=== PATIENT | male | born 1995 | race Caucasian/White ===

== ENCOUNTER 2016-07-21 12:52 | Emergency (ER) | payer OTHER ==
[2016-07-21 13:59] VITALS: BP 139/72
--- NOTE | 2016-07-21 14:14 | UC ---
Cardiac HPI - HPI Summary HPI Summary: right to mid chest pain x 2 days, no sob, no cough, no fever or chills, the pain is constant, - History of Current Complaint Chief Complaint: UCChestPain Stated Complaint: SORE THROAT,FEVER,CONGESTION Time Seen by Provider: 07/21/16 13:53 Hx Obtained From: Patient Onset/Duration: Gradual Onset, Lasting Days - 2, Still Present Timing: Constant Initial Severity: Mild Current Severity: Mild Chest Pain Location: Mid Sternal, Right Anterior Aggravating: Nothing Alleviating: Nothing Associated Signs & Symptoms: Positive: Chest Pain, Anxiety. Negative: Vision Changes, Recent Stress, Headaches, Numbness, Tingling, Weakness, Dizziness, SOB , Swelling, Syncope, Fever, Diaphoresis, Nausea/Vomiting, Palpitations, Cough, Hemoptysis, Back Pain, Abdominal Pain, Calf Pain/Swelling - Allergy/Home Medications Allergies/Adverse Reactions: Allergies Allergy/AdvReac Type Severity Reaction Status Date / Time Amoxicillin Allergy Intermediate Hives Unverified 07/21/16 13:59 Home Medications: Home Medications NK [No Home Medications Reported] 07/21/16 [History Confirmed 07/21/16] PMH/Surg Hx/FS Hx/Imm Hx Previously Healthy: Yes - Surgical History Surgical History: None - Family History Known Family History: Negative: Cardiac Disease, Hypertension, Diabetes - Social History Alcohol Use: Weekly Alcohol Amount: 1 Substance Use Type: None Smoking Status (MU): Never Smoked Tobacco Review of Systems Constitutional: Negative Skin: Negative Eyes: Negative ENT: Negative Respiratory: Negative Cardiovascular: Chest Pain Gastrointestinal: Negative Genitourinary: Negative All Other Systems Reviewed And Are Negative: Yes Physical Exam Triage Information Reviewed: Yes Appearance: Well-Appearing, No Pain Distress, Well-Nourished Vital Signs: Initial Vital Signs Temp 99.7 F 07/21/16 13:49 Pulse 99 07/21/16 13:49 Resp 24 07/21/16 13:49 BP 139/72 07/21/16 13:49 Pulse Ox 100 07/21/16 13:49 Vital Signs Reviewed: Yes Eyes: Positive: Conjunctiva Clear ENT: Positive: Normal ENT inspection, Hearing grossly normal, Pharynx normal Neck exam: Normal Neck: Positive: Supple, Nontender, No Lymphadenopathy Respiratory: Positive: Chest non-tender, Lungs clear, Normal breath sounds, No respiratory distress Cardiovascular: Positive: RRR, No Murmur, Pulses Normal Abdominal Exam: Normal Abdomen Description: Positive: Nontender, Soft. Negative: CVA Tenderness (R), CVA Tenderness (L), Distended, Guarding Bowel Sounds: Positive: Present Skin Exam: Normal - Clinical Impression Provider Diagnoses: atypical chest pain Discharge - Discharge Plan Condition: Stable Disposition: HOME Patient Education Materials: Chest Pain (ED) Referrals: Terrence Ryder MD [Primary Care Provider] - 7 Days Additional Instructions: atypical chest pain , not related to your heart. can be from muscle strain , esophageal spasm, stress rest, increase fluid, take tylenol as needed for pain follow up as needed
== END 2016-07-21 14:20 | disposition home or self-care (01) ==
LOC: UCCORT 12:52
DX: R07.89 Other chest pain (principal); Z88.1 Allergy status to other antibiotic agents
CPT/HCPCS: 99201; G0463

== ENCOUNTER 2017-11-19 19:00 | Emergency (ER) | payer OTHER ==
[2017-11-19 19:26] VITALS: BP 119/68
--- NOTE | 2017-11-19 19:43 | UC ---
Lower Extremity/Ankle HPI - HPI Summary HPI Summary: 21 yo male with left great toe pain/swelling x 4 days today drained pus no fever no trauma no hx MRSA - History of Current Complaint Chief Complaint: UCSkin Stated Complaint: L GREAT TOE COMPLAINT Time Seen by Provider: 11/19/17 19:32 Hx Obtained From: Patient Onset/Duration: Gradual Onset, Lasting Days Severity Initially: Mild Severity Currently: Mild Pain Intensity: 0 Pain Scale Used: 0-10 Numeric Aggravating Factor(s): Standing, Ambulation Alleviating Factor(s): Rest Able to Bear Weight: Yes Feet (Multiple View): 1 - red/swollen - Allergies/Home Medications Allergies/Adverse Reactions: Allergies Allergy/AdvReac Type Severity Reaction Status Date / Time amoxicillin Allergy Intermediate Hives Verified 11/19/17 19:26 Home Medications: Home Medications Propranolol LA CAP* [Inderal LA CAP*] 80 mg PO BID 11/19/17 [History Confirmed 11/19/17] PMH/Surg Hx/FS Hx/Imm Hx Previously Healthy: Yes - Surgical History Surgical History: None - Family History Known Family History: Negative: Cardiac Disease, Hypertension, Diabetes - Social History Alcohol Use: Rare Alcohol Amount: 1 Substance Use Type: None Smoking Status (MU): Never Smoked Tobacco Review of Systems Constitutional: Negative Skin: Negative Eyes: Negative ENT: Negative Respiratory: Negative Cardiovascular: Negative Gastrointestinal: Negative Genitourinary: Negative Motor: Negative Neurovascular: Negative Musculoskeletal: Negative Neurological: Negative Psychological: Negative Is Patient Immunocompromised?: No All Other Systems Reviewed And Are Negative: Yes Physical Exam Triage Information Reviewed: Yes Appearance: Well-Appearing, No Pain Distress, Well-Nourished Vital Signs: Initial Vital Signs Temp 98.4 F 11/19/17 19:22 Pulse 61 11/19/17 19:22 Resp 17 11/19/17 19:22 BP 119/68 11/19/17 19:22 Pulse Ox 100 11/19/17 19:22 Eye Exam: Normal ENT: Positive: Hearing grossly normal. Negative: Nasal congestion, Nasal drainage, Tonsillar swelling, Tonsillar exudate, Trismus, Muffled voice, Hoarse voice Neck: Positive: Supple Respiratory: Positive: Lungs clear, Normal breath sounds, No respiratory distress, No accessory muscle use Cardiovascular: Positive: RRR Musculoskeletal: Positive: ROM Intact, No Edema Neurological: Positive: Alert Psychological Exam: Normal Skin Exam: Normal Lower Extremity Course/Dx - Differential Dx/Diagnosis Provider Diagnoses: infected ingrown toenail left great toe Discharge - Sign-Out/Discharge Documenting (check all that apply): Discharge/Admit/Transfer - Discharge Plan Condition: Stable Disposition: HOME Prescriptions: Cephalexin CAP* [Keflex CAP*] 500 mg PO QID #28 cap Patient Education Materials: Cellulitis (ED) Referrals: Manny Ramírez MD [Primary Care Provider] - 3 Days (recheck 2-3 days if not better) Additional Instructions: warm soapy soaks twice daily until better - Billing Disposition and Condition Condition: STABLE Disposition: HOME
== END 2017-11-19 19:43 | disposition home or self-care (01) ==
LOC: UCCORT 19:00
DX: L03.032 Cellulitis of left toe (principal); L60.0 Ingrowing nail
CPT/HCPCS: 99212; G0463